=== PATIENT | male | born 1945 | race Caucasian/White ===

== ENCOUNTER 2016-05-12 07:58 | Day surgery (SDC) | payer MEDICARE ==
[~2016-05-12 07:58] MED LIST: FENTANYL 250 MCG/5 ML AMP IV PRN; LACTATED RINGERS 1,000 ML IV SCH; MIDAZOLAM HCL 5 MG/5 ML VIAL IV PRN
[2016-05-12] MEDS ORDERED: LACTATED RINGERS 1,000 ML ONE (07:59)
[2016-05-12] MEDS ORDERED: IV START KIT ONE (07:59)
[2016-05-12] MEDS ORDERED: MIDAZOLAM HCL 5 MG/5 ML VIAL ONE (08:07)
[2016-05-12] MEDS ORDERED: FENTANYL 250 MCG/5 ML AMP ONE (08:07)
== END 2016-05-12 09:30 | disposition home or self-care (01) ==
LOC: SDC 07:58
PROVIDERS: ATTEND Internal Medicine Gastroenterology
PROC: 0DJD8ZZ Inspection of Lower Intestinal Tract, Via Natural or Artificial Opening Endoscopic (ICD-10-PCS; principal; 2016-05-12)
DX: Z12.11 Encounter for screening for malignant neoplasm of colon (principal); Z86.010 Personal history of colon polyps; Z80.0 Family history of malignant neoplasm of digestive organs; Z83.71 Family history of colonic polyps; Z87.891 Personal history of nicotine dependence; Q43.8 Other specified congenital malformations of intestine
CPT/HCPCS: J3010; J2250; J7120; G0105